=== PATIENT | female | born 1990 | race African-American/Black ===

== ENCOUNTER 2018-01-01 16:21 | Emergency (ER) | payer OTHER ==
[2018-01-01 16:58] LABS: #Eosinphils 0.1 thou/uL (0.0-0.7); #Lymphocytes 1.4 thou/uL (1.20-3.40); #Monocytes 0.5 thou/uL (0.11-0.59); #Neutrophils 6.2 thou/uL (1.40-6.50); %Basophils 0.2 % (0.0-1.0); %Eosinophils 1.1 % (0.0-10.0); %Lymphocytes 17.2 % (21.0-51.0); %Monocytes 6.6 % (0.0-10.0); Mean Corpuscular HGB CONC 34.6 g/dL (32.0-36.0); Mean Corpuscular Hemoglobin 30.1 pg (27.0-31.0); Mean Corpuscular Volume 87.1 fl (81.0-99.0); Mean Platelet Volume 6.7 fL (7.4-10.4); Platelet Count 232 thou/uL (130-400); RBC Distribution Width 12.2 % (11.5-14.5); Red Blood Cell (RBC) Count 4.31 mill/uL (4.20-5.40); White Blood Cell (WBC) Count 8.2 thou/uL (4.8-10.8)
[2018-01-01 17:21] LABS: ALT (SGPT) 15 U/L (8-55); AST (SGOT) 16 U/L (5-34); Albumin 3.6 g/dL (3.5-5.0); Alkaline Phosphatase 92 U/L (40-150); Anion Gap 10 mmol/L (10-20); BUN (Urea Nitrogen) 6 mg/dL (7.0-18.7); Bilirubin, Total 0.5 mg/dL (0.2-1.2); Calc. Creatinine Clearance 0 mL/min (70-130); Calcium 9.3 mg/dL (7.8-10.44); Carbon Dioxide 25 mmol/L (22-29); Chloride 101 mmol/L (98-107); Estimated GFR-MDRD Greater than 90; Globulin 3.5 g/dL (2.4-3.5); Glucose 76 mg/dL (70-105); Potassium 3.3 mmol/L (3.5-5.1); Protein, Total 7.1 g/dL (6.0-8.3); Sodium 133 mmol/L (136-145)
[2018-01-01] MEDS ORDERED: Azithromycin 250 MG TAB ONE (18:20)
[2018-01-01] MEDS ORDERED: Potassium Chloride 20 MEQ TAB ONE (18:20)
[2018-01-01] MEDS ORDERED: Ondansetron HCl/PF 4 MG/2 ML Vial ONE (19:37)
[2018-01-01 19:47] LABS: Bilirubin Negative (Negative); Blood, Urine Negative (Negative); Clarity CLEAR (Clear); Glucose, Urine (Dipstick) Negative (Negative); Leukocyte Small (Negative); Nitrite Negative (Negative); Protein, Urine (Dipstick) Negative (Neg-Trace)
[2018-01-01 19:49] LABS: Bacteria/HPF None Seen HPF (None Seen); Hyaline Casts/LPF 0-3 HYALINE CAST LPF (0-3 Hyaline); Pathc Cast-AUWi Flag 0.14 (0-2.49); RBC/HPF 0-3 HPF (0-3)
[2018-01-01 19:54] LABS: Renal Epithelial None Seen HPF (0-3); Transitional Epithelial NONE SEEN HPF (0-3)
[2018-01-01] MEDS ORDERED: diphenhydrAMINE 50 MG/ML VIAL ONE (20:53)
== END 2018-01-01 22:14 | disposition home or self-care (01) ==
LOC: ERS 16:21
DX: O21.1 Hyperemesis gravidarum with metabolic disturbance (principal); Z3A.13 13 weeks gestation of pregnancy
CPT/HCPCS: 36415; 80053; 81003; 81015; 84702; 85025; 87804; 96361; 96374; 96375; J1200; J2405

== ENCOUNTER 2018-01-27 07:17 | Emergency (ER) | payer OTHER ==
[2018-01-27] MEDS ORDERED: Ondansetron ODT 4 MG TAB ONE (07:53)
[2018-01-27 08:04] LABS: #Eosinphils 0.1 thou/uL (0.0-0.7); #Lymphocytes 0.6 thou/uL (1.20-3.40); #Monocytes 0.7 thou/uL (0.11-0.59); #Neutrophils 12.6 thou/uL (1.40-6.50); %Basophils 0.2 % (0.0-1.0); %Eosinophils 0.4 % (0.0-10.0); %Lymphocytes 4.6 % (21.0-51.0); %Monocytes 4.6 % (0.0-10.0); %Neutrophils 90.2 % (42.0-75.0); Hemoglobin 12.3 g/dL (12.0-16.0); Mean Corpuscular HGB CONC 34.3 g/dL (32.0-36.0); Mean Corpuscular Volume 87.5 fl (81.0-99.0); Mean Platelet Volume 6.9 fL (7.4-10.4); Platelet Count 244 thou/uL (130-400); RBC Distribution Width 12.7 % (11.5-14.5); Red Blood Cell (RBC) Count 4.09 mill/uL (4.20-5.40); White Blood Cell (WBC) Count 13.9 thou/uL (4.8-10.8)
[2018-01-27 08:21] LABS: Bilirubin Small (Negative); Blood, Urine Negative (Negative); Clarity CLOUDY (Clear); Glucose, Urine (Dipstick) Negative (Negative); Leukocyte Large (Negative); Nitrite Negative (Negative); Protein, Urine (Dipstick) 30 mg/dL (Neg-Trace); Specific Gravity, Urine 1.029 (1.002-1.036)
[2018-01-27 08:23] LABS: Bacteria/HPF Rare-Few HPF (None Seen); Pathc Cast-AUWi Flag 1.74 (0-2.49); RBC/HPF 0-3 HPF (0-3)
[2018-01-27 08:27] LABS: ALT (SGPT) 10 U/L (8-55); AST (SGOT) 14 U/L (5-34); Albumin 3.7 g/dL (3.5-5.0); Alkaline Phosphatase 66 U/L (40-150); Anion Gap 9 mmol/L (10-20); BUN (Urea Nitrogen) 6 mg/dL (7.0-18.7); Bilirubin, Total 0.5 mg/dL (0.2-1.2); Calc. Creatinine Clearance 0 mL/min (70-130); Calcium 9.4 mg/dL (7.8-10.44); Carbon Dioxide 24 mmol/L (22-29); Chloride 105 mmol/L (98-107); Estimated GFR-MDRD Greater than 90; Globulin 3.5 g/dL (2.4-3.5); Glucose 115 mg/dL (70-105); Potassium 3.3 mmol/L (3.5-5.1); Protein, Total 7.2 g/dL (6.0-8.3); Sodium 135 mmol/L (136-145)
[2018-01-27 08:34] LABS: Yeast-AUWi Flag 50.1 (0-25.0)
[2018-01-27 08:44] LABS: Trichomonas/HPF Rare HPF (None Seen); Yeast-All Forms None Seen HPF (None Seen)
[2018-01-27 08:46] LABS: Hyaline Casts/LPF NONE SEEN LPF (0-3 Hyaline)
== END 2018-01-27 09:15 | disposition home or self-care (01) ==
LOC: ERS 07:17
DX: O98.312 Other infections with a predominantly sexual mode of transmission complicating pregnancy, second trimester (principal); A59.00 Urogenital trichomoniasis, unspecified; O23.42 Unspecified infection of urinary tract in pregnancy, second trimester; O21.9 Vomiting of pregnancy, unspecified; O99.89 Other specified diseases and conditions complicating pregnancy, childbirth and the puerperium; R19.7 Diarrhea, unspecified; Z3A.17 17 weeks gestation of pregnancy
CPT/HCPCS: 80053; 81003; 81015; 85025; 87086; 96360; Q0162

== ENCOUNTER 2018-04-27 21:28 | Observation (INO) | payer OTHER ==
[2018-04-27] MEDS ORDERED: Acetaminophen 500 MG TAB PO PRN (23:07)
[2018-04-27] MEDS ORDERED: diphenhydrAMINE 25 MG CAP PO PRN (23:11)
--- NOTE | 2018-04-27 23:19 | PDOC.LDHP ---
Labor and Delivery H&P Chief complaint: other (Vaginal pain) HPI: 27yo @27weeks presents for vaginal pain after running from a pit bull. Pt reports sprinting 1-2 blocks from an attacking dog and feeling sharp vaginal pain on ambulation 30 minutes after episode. Pt only feels pain when trying to move legs and reports that it feels like a pulled muscle. She was not bitten and did not fall. Pain is absent when pt is completely still and relaxed but severe enough on ambulation that she has difficulty walking. Reports good movement, no vaginal bleeding or loss of fluid. Reports history of karley hopkins contractions (no increase in frequency). Current gestational age (weeks): 27 Dating criteria: first trimester ultrasound Grav: 4 Para: 3 Current complications: none Current medications: none Previous surgical history: other (CS x3) Allergies/Adverse Reactions: Allergies Allergy/AdvReac Type Severity Reaction Status Date / Time No Known Allergies Allergy Verified 04/27/18 22:09 - Physical Exam Vital signs reviewed and normal: yes General: NAD, resting Heart: RRR Lungs: nonlabored breathing Abdomen: NTTP Extremeties: other (Decreased strength and passive ROM of hip extension/flexion due to pain. Pain also elicited by bilateral hip internal rotation, and on manual compression of the iliac wings.) FHT: category 1 - Vaginal Exam cm dilated: 1 (closed) Effacement: 0% Station: -2 - Assessment Pt not in labor. Pain is likely due to muskuloskeletal causes with possible mild pelvic diastasis. - Plan -: -Tylenol for pain -Benadryl prn for anxiety -CPK -PO rehydration -will discharge pending CPK
[2018-04-28] MEDS ORDERED: Promethazine HCl 25 MG/ML VIAL IM PRN (00:18)
[2018-04-28] MEDS ORDERED: Ondansetron HCl/PF 4 MG/2 ML Vial IVP PRN (00:18)
[2018-04-28] MEDS ORDERED: HYDROcodone/Acetaminophen 5/325 mg Tablet PO PRN ×4 (00:21→02:42)
[2018-04-28] MEDS ORDERED: Lactated Ringer's 1,000 ML IV SCH ×2 (00:30→02:45)
[2018-04-28] MEDS ORDERED: Acetaminophen 325 MG TAB PO PRN (01:00)
[2018-04-28] MEDS ORDERED: Fentanyl 100 MCG/2 ML VIAL SLOW IVP PRN (01:01)
--- NOTE | 2018-04-28 05:53 | PDOC.OBTPN ---
FMR OB Triage PN:Obj - Maternal Vital signs: BP: [] HR: [] RR: [] Tmax: [] Pox: []% on [] Wt: [] FMR OB Triage PN:Exam - Physical Exam General: CTAB, no respiratory distress, good air movement FMR OB Triage PN:Data - Labs Lab results: Laboratory Results - last 24 hr 04/27/18 23:32 Creatine Kinase 33 FMR OB Triage PN:A/P Discussion: Date/Time: 04/28/18 0553 This H&P was discussed with [] and [] who agree with the above documentation and plan.
--- NOTE | 2018-04-28 09:28 | PDOC.FM ---
- Subjective Subjective: Patient complained of pain in her "vaginal area" overnight. More localized to the area over the pubic symphysis. Difficulty with ambulating. - Objective MAR Reviewed: Yes Vital Signs & Weight: Vital Signs (12 hours) Temp Pulse Resp BP BP Pulse Ox 04/28/18 08:14 97.8 F 95 20 109/56 L 04/28/18 02:15 98.0 F 91 16 112/59 L 04/27/18 22:01 98.6 F 104 H 18 127/76 99 Weight Weight 160 g I&O: 04/27/18 04/28/18 04/29/18 06:59 06:59 06:59 Intake Total 400 Balance 400 Radiology Reviewed by me: Yes (pending read) <Kim Vargas - Last Filed: 04/28/18 10:56> - Objective Vital Signs & Weight: Weight Weight 160 g <Uziel Rosado - Last Filed: 04/30/18 09:00> Phys Exam - Physical Examination HEENT: moist MMs Tenderness to palpation at left-lateral to pubic sympysis, pain with ambula tion and internal and external rotation of extremities. Neurological: moves all 4 limbs Psychiatric: A&O x 3 Skin: no rash <Kim Vargas - Last Filed: 04/28/18 10:56> Dx/Plan (1) Pelvic pain Code(s): R10.2 - PELVIC AND PERINEAL PAIN Status: Acute - Plan Plan: 1. Pelvic discomfort due to diastasis of -Pain controlled with Trosper 5, will send for home prescription -Pelvic xray shows widening of pubic symphysis; measurement at 5mm, WNL -Pain most like 2/2 to normal anatomical changes -Consulted case management to aid in providing home walker equipement -Will discharge today; patient has follow up appt with PCP/OB Dr. Rea on 05/04 Obs <[address] Rosado <Kim Vargas - Last Filed: 04/28/18 10:56> Attending Addendum - Attending Addendum Date/Time: 04/30/18 0858 I personally evaluated the patient and discussed the management with Dr. Vargas I agree with the History, Examination, Assessment and Plan documented above with any addition or exceptions noted below. Rx written & sent electronically for small supply of Trosper 5/325 for severe pelvic discomfort. <Uziel Rosado - Last Filed: 04/30/18 09:00>
--- NOTE | 2018-04-28 09:51 | RAD ---
AP PELVIS RADIOGRAPH: Date: 04/28/18 HISTORY: Pelvic diastasis. FINDINGS: There is partial visualization of an intrauterine gestation in cephalic presentation with head overlying the pelvis. Osseous structures appear intact. No fracture is seen. Sacroiliac joints are sy mmetric bilaterally. There does appear to be slight increased widening of the pubic symphysis in rela tion to analog ic design engineer image from CT abdomen/pelvis on 11/04/16. No other findings. IMPRESSION: 1. Intrauterine gestation in cephalic presentation with head overlying the pelvis. 2. Suggestion of slight widening of the pubic symphysis. POS: [facility]
[2018-04-28 11:59] VITALS: BP 127/58; TEMP 98.3
--- NOTE | 2018-04-30 04:38 | DIS-2 ---
DATE OF ADMISSION: 04/28/2018 DATE OF DISCHARGE: 04/28/2018 RESIDENT: Kim Vargas MD ADMITTING ATTENDING: Rashida Ramires M.D. DISCHARGE ATTENDING: Uziel Rosado MD CONSULTATIONS: None. PROCEDURES: None. PRIMARY DIAGNOSIS: Pelvic diastasis. SECONDARY DIAGNOSIS: . DISCHARGE MEDICATIONS: 1. Somerset 1-2 tabs p.o. q.4. p.r.n. for severe pain. 2. vitamins one tab p.o. q.a.m. DISCONTINUED MEDICATIONS: None. HISTORY OF PRESENT ILLNESS AND HOSPITAL COURSE: Ms. Solis is a 27-year-old at 27 weeks who presented for pelvic/vaginal pain after running from a pit bull for 1-2 blocks. She reports presence of pain when trying to move her legs and that it feels like a pulled muscle. She denied getting bitten or trauma. FHT showed category 1 with no signs of active labor. She did have decreased strength and passive range of motion of hip extension, flexion and internal and external rotation due to pain. Pelvic x-ray was ordered in order to assess for pelvic diastasis or possible fracture. Xray was negative for fracture. Of note, there was increased widening of the pubic symphysis measuring at 5mm, the upper limit of normal, in order to quality for pelvic diastasis. It was decided that pelvic pain was secondary to normal anatomical widening of the pelvis due to . Patient was discharged with a walker and medication in order to help manage the pain. Extensive discussion was had that patient would continue to experience pain as baby grew bigger and that her history of prior C-sections and put her at increased risk for her condition. Patient showed understanding of the situation and her condition and agreed to try and use the walker and control her pain with Somerset if it got too severe until she followed up with her PCP, Dr. Rea. DISPOSITION: Stable, pain with ambulating but given walker and pain meds on discharge. DISCHARGE INSTRUCTIONS: 1. Location: Home. 2. Diet: Normal. 3. Activity: As tolerated. 4. Followup: Please follow up with your PCP, Dr. Rea within the next week to discuss if needed to renew Somerset Rx and to assess efficacy of a walker and possible further interventions (i.e. brace, etc) Seen and discussed with Dr. Vargas - agree with above. [facility]
== END 2018-04-28 15:15 | disposition home health service (06) ==
LOC: L&D/OP 21:28 → L&D 04-28 01:28 → 3SW 04-28 02:32
PROVIDERS: ADMIT Student in an Organized Health Care Education/Training Program; ATTEND Student in an Organized Health Care Education/Training Program
DX: O99.89 Other specified diseases and conditions complicating pregnancy, childbirth and the puerperium (principal); M62.059 Separation of muscle (nontraumatic), unspecified thigh; Z3A.27 27 weeks gestation of pregnancy
CPT/HCPCS: 36415; 59025; 72170; 76815; 82550; 96361; 96374; 99285; G0378; J3010

== ENCOUNTER 2018-11-09 13:22 | Emergency (ER) | payer OTHER ==
[2018-11-09] MEDS ORDERED: Ondansetron ODT 4 MG TAB ONE (14:25)
[2018-11-09 14:33] LABS: Bilirubin Negative (Negative); Blood, Urine Moderate (Negative); Clarity CLOUDY (Clear); Glucose, Urine (Dipstick) Negative (Negative); Leukocyte Moderate (Negative); Nitrite Negative (Negative); Protein, Urine (Dipstick) Trace mg/dL (Neg-Trace); Specific Gravity, Urine 1.021 (1.002-1.036); pH, Urine 6.5 (5.0-9.0)
[2018-11-09 14:35] LABS: Bacteria/HPF Rare-Few HPF (None Seen); Hyaline Casts/LPF 0-3 HYALINE CAST LPF (0-3 Hyaline); Pathc Cast-AUWi Flag 0.14 (0-2.49); Squamous Epithelial 0-3 HPF (0-3)
[2018-11-09 14:42] LABS: Pregnancy Test - Urine (BHCG) Negative (Negative)
[2018-11-09 14:43] LABS: Pregu Control Background? CLEAR/WHITE (CLR/WHITE); Pregu Control Bar Appear? YES (CONTROL BAR); Specific Gravity 1.024 (1.002-1.036)
== END 2018-11-09 15:08 | disposition home or self-care (01) ==
LOC: ERS 13:22
DX: N39.0 Urinary tract infection, site not specified (principal); J06.9 Acute upper respiratory infection, unspecified
CPT/HCPCS: 81003; 81015; 81025; 87086; 87804; 99284; Q0162

== ENCOUNTER 2018-11-27 09:14 | Emergency (ER) | payer OTHER | END 2018-11-27 09:57 | disposition home or self-care (01) | LOC: ERS 09:14 | DX: H10.9 Unspecified conjunctivitis (principal) | CPT/HCPCS: 99282 ==

== ENCOUNTER 2019-08-12 13:30 | Emergency (ER) | payer OTHER ==
[2019-08-12] MEDS ORDERED: Ondansetron ODT 4 MG TAB ONE (14:44)
== END 2019-08-12 16:03 | disposition home or self-care (01) ==
LOC: ERS 13:30
DX: R11.2 Nausea with vomiting, unspecified (principal)
CPT/HCPCS: 99283; Q0162

== ENCOUNTER 2019-11-12 17:20 | Emergency (ER) | payer OTHER ==
[2019-11-12] MEDS ORDERED: Ibuprofen 200 MG TAB ONE (18:48)
--- NOTE | 2019-11-12 18:52 | RAD ---
XR Foot Lt 3 View STANDARD HISTORY: Injury, left foot pain FINDINGS: No dislocation is identified. There is a questionable nondisplaced fracture involving the middle phalanx of the second toe. Clinica l correlation is recommended.
== END 2019-11-12 19:03 | disposition home or self-care (01) ==
LOC: ERS 17:20
DX: S90.122A Contusion of left lesser toe(s) without damage to nail, initial encounter (principal); W20.8XXA Other cause of strike by thrown, projected or falling object, initial encounter

== ENCOUNTER 2020-07-29 16:16 | Emergency (ER) | payer OTHER ==
[2020-07-29 16:52] LABS: #Basophils 0.1 thou/uL (0.0-0.2); #Eosinphils 0.1 thou/uL (0.0-0.7); #Lymphocytes 3.1 thou/uL (1.20-3.40); #Monocytes 0.8 thou/uL (0.11-0.59); #Neutrophils 4.7 thou/uL (1.40-6.50); %Basophils 0.9 % (0.0-1.0); %Eosinophils 1.7 % (0.0-10.0); %Lymphocytes 35.3 % (21.0-51.0); %Monocytes 9.1 % (0.0-10.0); Hemoglobin 13.1 g/dL (12.0-16.0); Mean Corpuscular HGB CONC 33.4 g/dL (32.0-36.0); Mean Corpuscular Hemoglobin 28.9 pg (27.0-31.0); Mean Corpuscular Volume 86.5 fL (78.0-98.0); Mean Platelet Volume 7.6 fL (7.4-10.4); Platelet Count 305 thou/uL (130-400); RBC Distribution Width 12.7 % (11.5-14.5); Red Blood Cell (RBC) Count 4.52 mill/uL (4.20-5.40); White Blood Cell (WBC) Count 8.8 thou/uL (4.8-10.8)
[2020-07-29 17:24] LABS: Bilirubin Negative (Negative); Blood, Urine Negative (Negative); Clarity Clear (Clear); Glucose, Urine (Dipstick) Normal (Negative); Ketone, Urine Negative (Negative); Leukocyte Negative Leu/uL (Negative); Nitrite Negative (Negative); Protein, Urine (Dipstick) Negative (Neg-Trace); Specific Gravity, Urine 1.011 (1.002-1.036); Urobilinogen Normal mg/dL (Less than 2); pH, Urine 6.5 (5.0-9.0)
[2020-07-29 17:26] LABS: Pregnancy Test - Urine (BHCG) POSITIVE (Negative); Pregu Control Background? CLEAR/WHITE (CLR/WHITE); Pregu Control Bar Appear? YES (CONTROL BAR); Specific Gravity 1.011 (1.002-1.036)
--- NOTE | 2020-07-29 18:05 | ULT ---
PELVIC ULTRASOUND: 07/29/20 HISTORY: Spontaneous two months ago. Positive home test last week. No bleeding per patient. Pelvic pain. COMPARISON: An 05/27/20 exam. Real time imaging of the pelvis was obtained both transabdominally as well as with an endovaginal pro be. This shows an intrauterine gestational sac. Sac measurements are approximately 1 cm corresponding to 5 weeks, 5 days. No pole or yolk sac is seen. Adjacent to this structure is a second fluid density structure probably subchorionic bleed and less likely at second involuting sac. Right and left adnexa appear within normal limits. DOPPLER EVALUATION WITH SPECTRAL ANALYSIS: Normal flow is shown to the adnexa. IMPRESSION: Low lying intrauterine gestational sac with subchorionic bleed. No pole or yolk sac is identifi ed. POS: OFF
== END 2020-07-29 18:22 | disposition home or self-care (01) ==
LOC: ERS 16:16
DX: O20.0 Threatened abortion (principal); Z3A.01 Less than 8 weeks gestation of pregnancy
CPT/HCPCS: 36415; 76856; 81003; 81025; 84702; 85025; 86900; 86901

== ENCOUNTER 2020-08-01 01:01 | Emergency (ER) | payer OTHER ==
[2020-08-01] MEDS ORDERED: Acetaminophen 500 MG TAB ONE (01:26)
[2020-08-01 01:43] LABS: #Basophils 0.1 thou/uL (0.0-0.2); #Eosinphils 0.1 thou/uL (0.0-0.7); #Lymphocytes 3.3 thou/uL (1.20-3.40); #Monocytes 0.8 thou/uL (0.11-0.59); #Neutrophils 5.1 thou/uL (1.40-6.50); %Basophils 0.7 % (0.0-1.0); %Eosinophils 1.5 % (0.0-10.0); %Monocytes 8.3 % (0.0-10.0); %Neutrophils 54.6 % (42.0-75.0); Hemoglobin 12.8 g/dL (12.0-16.0); Mean Corpuscular HGB CONC 33.9 g/dL (32.0-36.0); Mean Corpuscular Hemoglobin 29.1 pg (27.0-31.0); Mean Corpuscular Volume 85.9 fL (78.0-98.0); Mean Platelet Volume 7.2 fL (7.4-10.4); Platelet Count 297 thou/uL (130-400); RBC Distribution Width 12.7 % (11.5-14.5); Red Blood Cell (RBC) Count 4.39 mill/uL (4.20-5.40); White Blood Cell (WBC) Count 9.3 thou/uL (4.8-10.8)
[2020-08-01 02:04] LABS: Bilirubin Negative (Negative); Blood, Urine Negative (Negative); Clarity Clear (Clear); Glucose, Urine (Dipstick) Normal (Negative); Ketone, Urine Negative (Negative); Leukocyte Negative Leu/uL (Negative); Nitrite Negative (Negative); Protein, Urine (Dipstick) Negative (Neg-Trace); Specific Gravity, Urine 1.021 (1.002-1.036); Urobilinogen Normal mg/dL (Less than 2)
--- NOTE | 2020-08-01 07:45 | ULT ---
PRELIMINARY REPORT/[facility]/EMERGENCY AFTER HOURS PROCEDURE EXAM: US Obstetrical, Complete <14 weeks CLINICAL HISTORY: Pelvic pain, no vaginal bleeding, HCG, Total Quant 31689.92 TECHNIQUE: Transvaginal and transabdominal imaging of the maternal pelvis and a <14 week gestation with image do cumentation. COMPARISON: None provided. FINDINGS: GESTATION: An 8.1 mm intrauterine gestational sac is noted, corresponding to 5 weeks 4 days, with no evidence fo r pole or yolk sac and a small quantity of endometrial fluid is noted in the fundal region UTERUS: Unremarkable. No myometrial mass. Measures 11.4 x 4.0 x 5.8 cm CERVIX: Closed. Unremarkable. OVARIES: Unremarkable. No mass. The RIGHT side measures 4.1 x 3.2 x 2.9 cm and the LEFT side measures 3.5 x 1 .4 x 2.3 cm FREE FLUID: No free fluid. IMPRESSION: Early empty intrauterine gestational sac ELECTRONICALLY SIGNED BY: Luke Turner MD Aug 01, 2020 2:24:31 AM CDT This report is intended for review by the ordering physician only, in accordance of law. If you recei ve this report in error, please call [facility] at [phone]. FINAL REPORT Exam: Transabdominal and endovaginal pelvic ultrasound HISTORY:Pelvic pain. No vaginal bleeding. COMPARISON: None TECHNIQUE: Transabdominal and endovaginal imaging of the pelvis is performed. Ovaries are interrogate d with grayscale, color flow, Doppler imaging and spectral wave form analysis FINDINGS: Uterus: No myometrial masses. Uterus measurin.5 x 4.1 x 5.8 cm. Endometrium: Within the endometrium, there is an anechoic focus which may represent a gestational sac . No evidence of yolk sac or pole. Free fluid: None Right ovary: Normal echotexture Right ovary measurement: 4.1 x 3.3 x 2.9 cm Left ovary: Normal echotexture. Left ovary measurements: 3.5 x 1.4 x 2.3 cm Ovarian Doppler: There is vascular flow to the left and right ovary. IMPRESSION: 1. This report is in agreement with initial report by [facility]. 2. Anechoic focus in the endometrium which may represent a gestational sac versus a pseudogestational sac. Differential considerations include early intrauterine versus a sonographically occult ectopic versus a nonviable . Follow-up ultrasound and serial beta-hCGs are recommended. Transcribed Date/Time: 08/01/2020 7:49 AM
== END 2020-08-01 03:14 | disposition home or self-care (01) ==
LOC: ERS 01:01
DX: O99.891 Other specified diseases and conditions complicating pregnancy (principal); M54.5 Low back pain
CPT/HCPCS: 36415; 76856; 81003; 84702; 85025

== ENCOUNTER 2020-08-05 22:56 | Emergency (ER) | payer OTHER ==
[2020-08-05] MEDS ORDERED: Ondansetron ODT 8 MG TAB ONE (23:33)
[2020-08-05 23:44] LABS: Bilirubin Negative (Negative); Blood, Urine Negative (Negative); Clarity Clear (Clear); Glucose, Urine (Dipstick) Normal (Negative); Ketone, Urine 10 mg/dL (Negative); Leukocyte Negative Leu/uL (Negative); Nitrite Negative (Negative); Protein, Urine (Dipstick) 10 mg/dL (Neg-Trace); Specific Gravity, Urine 1.023 (1.002-1.036); pH, Urine 6.5 (5.0-9.0)
== END 2020-08-06 00:05 | disposition home or self-care (01) ==
LOC: ERS 22:56
DX: O21.9 Vomiting of pregnancy, unspecified (principal); O99.891 Other specified diseases and conditions complicating pregnancy; R10.13 Epigastric pain
CPT/HCPCS: 81003; 99284; Q0162

== ENCOUNTER 2020-09-30 21:46 | Observation (INO) | payer OTHER ==
[2020-09-30 22:52] LABS: Bacteria/HPF 2+ HPF (None Seen); Bilirubin Negative (Negative); Blood, Urine Negative (Negative); Clarity Clear (Clear); Glucose, Urine (Dipstick) Normal (Negative); Ketone, Urine Negative (Negative); Leukocyte 250 Leu/uL (Negative); Mucous/LPF 1+ LPF (<2+); Nitrite Negative (Negative); Protein, Urine (Dipstick) 30 mg/dL (Neg-Trace); RBC/HPF 0-3 HPF (0-3); Specific Gravity, Urine 1.035 (1.002-1.036); WBC/HPF 0-3 HPF (0-3); pH, Urine 6.5 (5.0-9.0)
[2020-09-30 23:16] LABS: #Lymphocytes 0.8 thou/uL (1.20-3.40); #Monocytes 0.8 thou/uL (0.11-0.59); #Neutrophils 7.4 thou/uL (1.40-6.50); %Basophils 0.1 % (0.0-1.0); %Eosinophils 0.5 % (0.0-10.0); %Lymphocytes 8.8 % (21.0-51.0); %Monocytes 8.5 % (0.0-10.0); %Neutrophils 82.1 % (42.0-75.0); Hemoglobin 11.3 g/dL (12.0-16.0); Mean Corpuscular HGB CONC 33.2 g/dL (32.0-36.0); Mean Corpuscular Volume 87.5 fL (78.0-98.0); Mean Platelet Volume 7.5 fL (7.4-10.4); Platelet Count 232 thou/uL (130-400); RBC Distribution Width 13.7 % (11.5-14.5); Red Blood Cell (RBC) Count 3.89 mill/uL (4.20-5.40)
[2020-10-01] MEDS ORDERED: Lidocaine Viscous Sol 2% 15 ml UD Cup ONE (00:04)
[2020-10-01] MEDS ORDERED: Mag-Al 1200 mg/1200 mg/30 ML UDCUP ONE (00:04)
--- NOTE | 2020-10-01 06:02 | PDOC.FPRHP ---
- History of Present Illness Chief Complaint: SOB History of Present Illness: Patient is a 29 year old at 14.0wk by LMP/9.2wk US who presented to ED with complains of chest pain and SOB since this am. Patient describes pain as sternal, rated 3/10, nonradiating, worsened with inspiration. Reports SOB at rest that worsened with activity and speaking. Notes tachycardia but denies headache, vision changes, wheezing, and nausea. Initially experienced suprapubic abdominal pain but now resolved. Notes chest pain and abdominal pain improved after GI cocktail. Has experienced GERD symptoms throughout consisting as bad aftertaste, increased reflux at night and reflux after large meals. Denies similar symptoms in the past. Notes BP has been elevated in clinic and she is currently being evaluated for chronic HTN. Denies hx of tachycardia. ED Course: In the ED, HR ranged 120s-130s. Given 2L NS with improvement to 110s. However, HR would increase to 140s with ambulation. BP initially elevated at 140s/70s but improved to 100s/60s after fluids. EKG completed and showed tachycardia. CT Angio Chest completed - per ED report, no obvious PE present however scan was poor quality. Also given GI cocktail with improvement of chest pain and resolution of abdominal pain. - Allergies/Adverse Reactions Allergies Allergy/AdvReac Type Severity Reaction Status Date / Time No Known Allergies Allergy Verified 12/27/19 01:59 - Home Medications Medication Instructions Recorded Confirmed Type Vit 93/Iron Fum/Folic 1 tablet PO DAILY 06/12/18 10/01/20 History [ Formula Tablet] Acetaminophen [Tylenol] 650 mg PO Q6HR PRN 10/01/20 10/01/20 History Doxylamine Succinate/Vit B6 1 tab PO HS 10/01/20 10/01/20 History [Doxylamine-Pyridoxine 10-10 mg] Promethazine HCl 12.5 mg PO Q4H PRN 10/01/20 10/01/20 History - History PMHx: Hx GBS bacteruria, hx adhesions, hx BV with adequate treatment PSHx: x 4 FHx: No family hx of blood clots. Social: Denies tobacco use, ETOH use and drug use - Review of Systems General: denies: fever/chills, fatigue Eyes: denies: eye pain, vision changes ENT: denies: nasal congestion, rhinorrhea Respiratory: reports: shortness of breath, exercise intolerance. denies: cough Cardiovascular: reports: chest pain, palpitation, orthopnea. denies: edema, paroxysmal nocturnal dyspnea Gastrointestinal: denies: nausea, diarrhea, constipation, abdominal pain Genitourinary: denies: dysuria, polyuria Skin: denies: rashes, jaundice Musculoskeletal: denies: pain, tenderness Neurological: denies: seizure, weakness Psychological: denies: anxiety, depression - Vital signs BP 130/67, HR 135, RR 18, Pulse ox 99% on RA, temp 99.9F - Physical Exam Constitutional: NAD, awake, alert and oriented HEENT: normocephalic and atraumatic, PERRLA, no scleral icterus, MMM Neck: supple, FROM Heart: normal S1/S2, no murmurs/rubs/gallops, pulses present, no edema -Heart: Tachycardic Lungs: CTAB, no respiratory distress, good air movement, no rales/rhonchi, no wheezing -Lungs: Able to speak in complete sentences without effort Abdomen: soft, non-tender, bowel sounds present -Abdomen: Gravid Musculoskeletal: ROM grossly normal Neurological: no focal deficit Skin: no jaundice Heme/Lymphatic: no purpura, no petechia Psychiatric: normal mood and affect FMR H&P: Results - Labs Result Diagrams: 09/30/20 22:48 10/01/20 06:31 Lab results: WBC 9.0 thou/uL (4.8-10.8) 09/30/20 22:48 Hgb 11.3 g/dL (12.0-16.0) L 09/30/20 22:48 Hct 34.1 % (36.0-47.0) L 09/30/20 22:48 MCV 87.5 fL (78.0-98.0) 09/30/20 22:48 Plt Count 232 thou/uL (130-400) 09/30/20 22:48 Neutrophils % 82.1 % (42.0-75.0) H 09/30/20 22:48 B-Natriuretic Peptide Less than 10.0 pg/mL (0-100) 10/01/20 01:05 Lipase 13 U/L (8-78) 09/30/20 22:48 Urine Ketones Negative mg/dL (Negative) 09/30/20 22:29 Urine Blood Negative (Negative) 09/30/20 22:29 Urine Nitrite Negative (Negative) 09/30/20 22:29 Ur Leukocyte Esterase 250 Maday/uL (Negative) A 09/30/20 22:29 Urine RBC 0-3 HPF (0-3) 09/30/20 22:29 Urine WBC 0-3 HPF (0-3) 09/30/20 22:29 Ur Squamous Epith Cells 7-10 HPF (0-3) A 09/30/20 22:29 Urine Bacteria 2+ HPF (None Seen) A 09/30/20 22:29 - EKG Interpretation EKG: Sinus tachycardia, no ST segment changes FMR H&P: A/P - Plan 29 year old at 14.0wk who presented with SOB and sternal chest pain Sinus tachycardia HR 120s-130s in ED, improved to 110s s/p 2 L NS. Increases to 140s with activity. EKG showed sinus tach. Trop negative x 3. CT Angio Chest negative for obvious PE but inadequate scan. Likely worsened due to poor PO intake 2/2 chronic nausea. -Admit to tele obs -Continuous cardiac monitoring -Vitals Q4H -s/p 2 L NS in ED. Encourage PO intake -COVID test to r/o infectious cause GBS bacteruria In clinic on 09/29, urine culture + GBS 10-50,000 cfu. UA + leuk est, bacteria, squams, protein. -Start amoxil 875mg BID -F/u urine culture Parra IUP -14.0wk by LMP/9.2wk US. Hx adhesions S/p x 4 Hx BV with adequate treatment -Aware PCP: [facility] Code: FULL DVT ppx: SCDs Dispo: Admit to tele obs, expected LOS < 48 hours FMR H&P: Upper Level - Plan Date/Time: 10/01/[address] Sarah Cárdenas and Dr. Chyna Coughlin Addendum - Attending - Attending Attestation Date/Time: 10/01/20 1047 I personally evaluated the patient and discussed the management with Dr. Louis I agree with the History, Examination, Assessment and Plan documented above with any addition or exceptions noted below - 29 yo @ 14.0 weeks presented c/o substernal chest pain worse with deep inspiration, and SOB. Denies any recent travel or ill contacts. Initially denied any cough, nasal congestion or MORTON but now endorses these symptoms. Tm100 P125 BP 142/75 RR18 96% Exam repeated by me and agree with resident's findings. Labs: H/H=11.3/34.1, Pmd=935, Diff= 82N/9L, trop<0.010, Ud=448, K=3.5, Ks=790, CO2=23, BUN/Cr=15/0.69. CT angio chest- poor contrast bolus, limited study; no large PE. A/P: Chest pain and SOB - CT chest limited study; discussed with radiology and suggested b/l lower ext doppler to evaluate for possible DVT. Will start on therapeutic lovenox pending studies and consider repeat CT chest if symptoms continue and no other etiology found. COVID test pending. Continue to monitor closely. 2) GBS bacteruria- culture positive from office. Will start on amoxicillin.
[2020-10-01] MEDS ORDERED: Acetaminophen 325 MG TAB PO PRN (06:15)
[2020-10-01 07:05] LABS: ALT (SGPT) 24 U/L (8-55); AST (SGOT) 28 U/L (5-34); Albumin 3.2 g/dL (3.5-5.0); Alkaline Phosphatase 78 U/L (40-110); Anion Gap 14 mmol/L (10-20); BUN (Urea Nitrogen) 5 mg/dL (7.0-18.7); Bilirubin, Total 0.2 mg/dL (0.2-1.2); Calc. Creatinine Clearance 0 mL/min (70-130); Calcium 8.2 mg/dL (7.8-10.44); Carbon Dioxide 23 mmol/L (22-29); Chloride 106 mmol/L (98-107); Globulin 2.9 g/dL (2.4-3.5); Glucose 95 mg/dL (70-105); Potassium 3.5 mmol/L (3.5-5.1); Protein, Total 6.1 g/dL (6.0-8.3); Sodium 139 mmol/L (136-145)
[2020-10-01 07:09] LABS: Troponin I Less than 0.010 ng/mL (< 0.028)
[2020-10-01 07:38] VITALS: BMI 36.0
[2020-10-01] MEDS: Dextrose 5 % And 0.9 % NaCl 1,000 ML IV SCH ×2 (08:37→18:17)
[2020-10-01] MEDS: Prenatal Vitamin 1 TAB PO SCH (08:37)
[2020-10-01] MEDS ORDERED: PRENATAL VIT PO SCH (09:00)
[2020-10-01] MEDS ORDERED: FOLIC PO SCH (09:00)
[2020-10-01] MEDS ORDERED: IRON FUM PO SCH (09:00)
[2020-10-01] MEDS ORDERED: [UNRECOGNIZED DRUG - OTHER] PO SCH (09:00)
[2020-10-01] MEDS ORDERED: AMOXicillin 250 MG CAP PO SCH (09:00)
--- NOTE | 2020-10-01 09:29 | CT ---
PRELIMINARY REPORT/[facility]/EMERGENCY AFTER HOURS PROCEDURE EXAM: CTA Chest with Intravenous Contrast CLINICAL HISTORY: PT IS 13 WEEKS AND STARTED HAVING CP THIS MORNING. TOOK TYLENOL AROUND 1700 WITH NO RELIEF. SOME ABD PAIN WITH NAUSEA. TECHNIQUE: Axial CTA images of the chest with intravenous contrast. Three-dimensional MIP/volume rendered reform ations were performed. CONTRAST: With; ISOVUE 370; 62mL COMPARISON: None provided. FINDINGS: PULMONARY ARTERIES This examination is very limited for evaluation of PE due to the poor contrast enhancement. AORTA No thoracic aortic aneurysm or dissection. LUNGS The lungs are clear. No pulmonary mass. No focal airspace consolidation. PLEURAL SPACES No pleural effusion. No pneumothorax. HEART AND MEDIASTINUM No cardiomegaly. No significant pericardial effusion. LYMPH NODES No lymphadenopathy. BONES No focal osseous abnormality or acute fracture. CHEST WALL AND UPPER ABDOMEN Images through the upper abdomen are unremarkable. The chest wall is unremarkable. IMPRESSION: This examination is very limited for evaluation of PE due to the poor contrast enhancement. There is no large PE seen. ELECTRONICALLY SIGNED BY: José Miguel Hernandez MD Oct 01, 2020 1:56:48 AM SECURITY SYSTEMS ENGINEER This report is intended for review by the ordering physician only, in accordance of law. If you recei ve this report in error, please call [facility] at [phone]. FINAL REPORT EMERGENCY AFTER HOURS CTA CHEST: I agree with the preliminary report provided by [facility]. The exam is technically limited in evaluation for PE due to poor opacification of the pulmonary arterial tree. There are no secondary signs to suggest the presence of pulmonary embolus. There is no evidence of infiltrative disease with in the lungs to suggest pneumonia. Transcribed Date/Time: 10/01/2020 9:37 AM
[2020-10-01] MEDS ORDERED: Iopamidol 370 76% 100 ML VIAL ONE (09:30)
[2020-10-01] MEDS ORDERED: Enoxaparin Sodium 80 MG/0.8 ML SYRINGE SC SCH ×2 (09:45→10:00)
[2020-10-01 10:08] LABS: Troponin I Less than 0.010 ng/mL (< 0.028)
--- NOTE | 2020-10-01 10:44 | ULT ---
EXAM: Bilateral lower extremity venous ultrasound HISTORY: patient. Chest pain. COMPARISON: None TECHNIQUE: Multiplanar grayscale and color Doppler images were obtained in a bilateral lower extremit y venous ultrasound. Spectral analysis of the Doppler waveforms were performed. FINDINGS: The bilateral common femoral vein, profunda femoral veins, superficial femoral veins, and p opliteal veins are normal in appearance without visible thrombus. These vessels demonstrate normal compression, flow, and augmentation. The bilateral posterior tibial veins, profunda femoral veins and greater saphenous veins are patent w ithout evidence of DVT. IMPRESSION: No evidence of DVT in the left or right lower extremity.
[2020-10-01 11:25] LABS: SARS-CoV-2 NAA Rapid Test DETECTED (NotDetected)
[2020-10-01] MEDS: Acetaminophen 325 MG TAB PO SCH ×3 (15:31→20:50)
[2020-10-01] MEDS: Enoxaparin Sodium 80 MG/0.8 ML SYRINGE SC SCH (20:50)
[2020-10-01] MEDS ORDERED: Ondansetron PF 4 MG/2 ML Vial IVP PRN (21:41)
[2020-10-01] MEDS ORDERED: guaiFENesin ER 600 MG TAB PO SCH (22:15)
[2020-10-02] MEDS: Acetaminophen 325 MG TAB PO SCH ×6 (00:46→21:01)
--- NOTE | 2020-10-02 06:01 | PDOC.FM ---
- Subjective Subjective: Patient overall feeling fatigued, denies chest pain. Reports cramping abdominal pain when using the restroom, lightheadedness, fatigue, and dyspnea with exertion. Comfortable when lying down. - Objective MAR Reviewed: Yes Vital Signs & Weight: Vital Signs (12 hours) Temp Pulse Resp BP Pulse Ox 10/02/20 03:05 98.8 F 95 17 98 10/01/20 23:45 99.8 F H 107 H 26 H 118/55 L 95 10/01/20 19:59 99.1 F 109 H 24 H 117/56 L 97 Weight Weight 83.688 kg I&O: 09/30/20 10/01/20 10/02/20 06:59 06:59 06:59 Intake Total 1668 Balance 1668 Result Diagrams: 09/30/20 22:48 10/01/20 06:31 Phys Exam - Physical Examination Constitutional: NAD Respiratory: no wheezing, no rales, no rhonchi, clear to auscultation bilateral Mildly tachycardia, regular rhythm Gastrointestinal: soft, non-tender, no distention Musculoskeletal: no edema, pulses present Dx/Plan - Plan Plan: 29 year old at 14.1wk who presented with SOB and sternal chest pain Sinus tachycardia HR 100s-120s overnight, Trop negative x 3. CT Angio Chest negative for obvious PE but inadequate scan - Continuous cardiac monitoring - Vitals Q4H - Will give 1L bolus COVID + - Likely the cause of sx - Consider course of prednisone outpatient - CTA, Venous duplex negative, Wells score 0-1.5 depending on tachycardia - Likely stop thx lovenox today GBS bacteruria In clinic on 09/29, urine culture + GBS 10-50,000 cfu. UA + leuk est, bacteria, squams, protein. - amoxil 875mg BID - F/u urine culture Parra IUP - 14.1wk by LMP/9.2wk US Hx adhesions S/p x 4 Hx BV with adequate treatment - Aware PCP: [facility] Code: FULL DVT ppx: Thx lovenox Dispo: Admit to tele obs, expected LOS < 48 hours, plan for dc today Addendum - Attending - Attending Attestation Date/Time: 10/02/20 1057 I personally evaluated the patient and discussed the management with Dr. Hyatt. I agree with the History, Examination, Assessment and Plan documented above with any addition or exceptions noted below. She remains intermittently tachycardic but has responded to fluids. She states chest pain is reproducable with deep inspiration and movement but not palpitation. localizes to the sternum. I suspect costrochondritis vs pleuritic pain but would like to get an echo in the context of , recurrent sinus tachycardia, and possible chronic hypertension to rule out peripartum cardiomyopathy. Once echo is obtained she can be discharged. will start short course of steroids for pleuritic pain since NSAIDs cannot be used in . Discussed home quarantine for 14 total days due to COVID positive status and RTC precautions if she has worsening sx.
[2020-10-02] MEDS ORDERED: Lactated Ringer's 1,000 ML IV SCH (08:00)
[2020-10-02] MEDS: guaiFENesin ER 600 MG TAB PO SCH ×2 (08:35→19:48)
[2020-10-02] MEDS: Enoxaparin Sodium 80 MG/0.8 ML SYRINGE SC SCH (08:35)
[2020-10-02] MEDS: Prenatal Vitamin 1 TAB PO SCH (09:28)
[2020-10-02 16:24] LABS: Free T4 (Free Thyroxine) 0.63 ng/dL (0.70-1.48)
--- NOTE | 2020-10-02 17:22 | PDOC.BPN ---
- Brief Progress Note Encounter Date: 10/02/20 Encounter Time: 16:45 Patient feeling better this afternoon. Heart rate in low 90s this afternoon. Unable to perform ECHO at this time due to COVID positive status. Advised patient she will need follow up at [facility] in 2 weeks. Chest pain suspected to have component of costochondritis. Will send course of Prednisone 20 mg x 5 days. Also will send additional Amoxicillin for 6 days to complete course.
[2020-10-02] MEDS ORDERED: hydrOXYzine 25 MG TAB PO SCH (20:15)
[2020-10-02 20:59] LABS: Troponin I Less than 0.010 ng/mL (< 0.028)
[2020-10-03] MEDS: Acetaminophen 325 MG TAB PO SCH ×3 (01:04→08:07)
--- NOTE | 2020-10-03 05:38 | PDOC.FM ---
- Subjective Subjective: Patient was sleeping at the time of evaluation but was easily arousable and pleasant. Patient endorsed 1 episode of mild nausea and lightheadedness while ambulating to the bathroom the day prior, but denied any acute overnight events, specifically with regard to repeat chest pain, difficulty breathing, nausea, vomiting, loss of movement, vaginal bleeding or vaginal discharge, although she did endorse mild dysuria at the end of urination. - Objective Vital Signs & Weight: Vital Signs (12 hours) Temp Pulse Resp BP Pulse Ox 10/03/20 03:20 98.6 F 99 16 107/55 L 97 10/02/20 23:01 98.7 F 103 H 20 121/67 99 10/02/20 19:30 98.7 F 110 H 22 H 133/80 98 10/02/20 18:20 107 H 22 H 128/68 98 Weight Weight 83.688 kg I&O: 10/01/20 10/02/20 10/03/20 06:59 06:59 06:59 Intake Total 1668 1600 Balance 1668 1600 Result Diagrams: 09/30/20 22:48 10/01/20 06:31 Phys Exam - Physical Examination Constitutional: NAD HEENT: moist MMs Neck: no nodes, supple, full ROM Respiratory: no wheezing, no rales, no rhonchi, clear to auscultation bilateral Cardiovascular: RRR, no significant murmur, no rub Gastrointestinal: soft, non-tender, no distention Musculoskeletal: no edema, pulses present Neurological: non-focal, moves all 4 limbs Lymphatic: no nodes Psychiatric: normal affect Dx/Plan (1) COVID-19 Code(s): U07.1 - COVID-19 Status: Acute (2) Intrauterine Code(s): Z34.90 - ENCNTR FOR SUPRVSN OF NORMAL , UNSP, UNSP TRIMESTER Status: Acute (3) Sinus tachycardia Code(s): R00.0 - TACHYCARDIA, UNSPECIFIED Status: Acute (4) GBS bacteriuria Code(s): R82.71 - BACTERIURIA Status: Acute (5) Obesity Code(s): E66.9 - OBESITY, UNSPECIFIED Status: Chronic - Plan Plan: Patient is a 29 y/o female at 14.2W EGA by LMP who presented to the ED for evaluation of SOB and chest pain. #COVID(+) - Likely the cause of patient's symptoms, with strong suspicion for cost ochondritis - No evidence of pending respiratory compromise - CTA Chest/Thorax: Negative - Venous Doppler US: Negative - Tylenol, Guaifenesin PRN - Will likely DC with PO Prednisone for 5 days - Patient was educated on the importance of social distancing and COVID-19 precautions following discharge #Sinus Tachycardia - HR was recorded in the high 90s and low 100s overnight - no evidence of ST- segment changes - All imaging negative, as per above - Trops: Negative x3 - Will continue Cardiac Monitoring throughout hospitalization. - Vitals Q4H - Has responded well to fluids throughout hospitalization - will consider additional 1L bolus if indicated #GBS bacteruria - UCx (09/29 - Clinic): GBS+, 10-50,000 CFU - UA: Leuk. Est., Bacteria, Squams, Protein - Amoxicillin 875mg BID - Repeat UCx: 25-50,000 CFU Mixed Ros #Parra IUP - 14.2W by LMP, c/w 9.2wk US - FHTs reportedly in the 140s on admission - Patient continues to endorse good movement #Hx Adhesions - Aware #Hx of CSx x4 - Aware #Hx of BV, s/p Treatment - Aware PCP: Casey/Bolivar ([facility]) Code: FULL Diet: Regular Activity: Ad wilver VTE PPx: None IVF: None Dispo: Patient appears well at this time but is still admittedly nervous following several episodes of chest pain in the setting of COVID-19 infection. Patient was counseled on the relatively benign course of costochondritis and standard course of viral infections. Will continue PRN Tylenol and Guaifenesin as per above and will likely initiate course of steroids following DC later this AM, with planned follow-up at [facility] in 2W. Expected LOS < 12H. Addendum - Attending - Attending Attestation Date/Time: 10/03/20 1022 I personally evaluated the patient and discussed the management with Dr. Walker. I agree with the History, Examination, Assessment and Plan documented above with any addition or exceptions noted below. Pulse stabilized overnight. CP intermittent and c/w pleurisy vs costrochondritis. discussed disease course with patient. consider outpatient echo if pulse remains elevated but not needed at this time. Given COVID RTC precautions. d/c home today.
[2020-10-03] MEDS: Prenatal Vitamin 1 TAB PO SCH (08:07)
[2020-10-03] MEDS: guaiFENesin ER 600 MG TAB PO SCH (08:08)
--- NOTE | 2020-10-03 08:58 | PDOC.BPN ---
- Brief Progress Note Encounter Date: 10/02/20 Encounter Time: 20:00 Called by nurse noting that patient is having chest pain, described as pressure in the center of her chest, x 20 minutes, with intermittent 8/10 stringing. Patient very anxious at bedside. Tachycardia noted in 120s. All other VSS. Pt does have shortness of breath. No relief with tylenol. EKG showed Sinus tachycardia, Troponin negative. She states that the stinging pain is new and she does not feel comfortable going home, even after discussing likely 2/2 costochondritis and covid. Will continue to monitor overnight and likely discharge in the am.
[2020-10-03 11:56] VITALS: BP 118/64; TEMP 99
--- NOTE | 2020-10-03 17:35 | EKG ---
Test Reason : CP Blood Pressure : / mmHG Vent. Rate : 114 BPM Atrial Rate : 114 BPM P-R Int : 114 ms QRS Dur : 070 ms QT Int : 332 ms P-R-T Axes : 036 043 034 degrees QTc Int : 457 ms Sinus tachycardia Otherwise normal ECG Confirmed by Gauri PEÑA ([id number]) on 10/03/2020 5:34:59 PM Referred By: SCOTT Confirmed By:Gauri PEÑA
--- NOTE | 2020-10-04 06:47 | DIS ---
DATE OF ADMISSION: 10/01/2020 DATE OF DISCHARGE: 10/03/2020 RESIDENT: Dr. Jaspreet Walker. ADMITTING ATTENDING: Dr. Chyna Coughlin. DISCHARGE ATTENDING: Dr. Morales Menendez. CONSULTS: None. PROCEDURES: CTA of chest and thorax performed on 10/01/2020, which revealed a technically difficult exam. However, there are no secondary signs that suggest the presence of a pulmonary embolus and there is no evidence of infiltrative disease within the lung to suggest pneumonia. Venogram performed on 10/01/2020, which revealed no evidence of a DVT in the left or right lower extremity. PRIMARY DIAGNOSIS: Costochondritis, likely secondary to COVID-19 infection. SECONDARY DIAGNOSES: 1. Sinus tachycardia. 2. GBS bacteria. 3. Intrauterine . 4. History of adhesions. 5. History of x4. 6. History of bacterial vaginosis, status post treatment. DISCHARGE MEDICATIONS: 1. vitamin 93, one tablet p.o. daily. 2. Acetaminophen 650 mg p.o. q.6 hours p.r.n. 3. Amoxicillin 875 mg p.o. b.i.d. for 6 days. 4. Doxylamine/pyridoxine 1 tablet p.o. daily. 5. Guaifenesin 600 mg p.o. q.12 hours p.r.n. 6. Prednisone 20 mg p.o. daily for 5 days. 7. Promethazine 12.5 mg p.o. q.4 hours p.r.n. DISCONTINUED MEDICATIONS: None. HISTORY OF PRESENT ILLNESS/HOSPITAL COURSE: The patient is a 29-year-old G6, P4-0-1-4 at 14 weeks, estimated gestational age by last menstrual period consistent with 9.2-week ultrasound, who presented to the emergency department with complaints of chest pain and shortness of breath. The patient described the pain as sternal, rated as 3/10, stated it was nonradiating and worse with inspiration. The patient reported shortness of breath that was worsened with activity and speaking. She noted tachycardia, but denied headaches, vision changes, wheezes, or nausea. The patient initially experienced suprapubic abdominal pain, but stated that it resolved by the time of evaluation by the resident team. The patient notes that the chest pain and abdominal pain improved after a GI cocktail and has experienced GERD symptoms throughout her consisting of a bad aftertaste, increased reflux at night and reflux after large meals. However, the patient denies similar symptoms in the past. Notes that her blood pressure has been elevated in clinic and she is currently being evaluated for chronic hypertension. The patient denies a known history of tachycardia up until this point. In the emergency department, the patient's heart rate ranged from the 120s to 130s. She was fluid resuscitated with 2 L of normal saline and her heart rate improved to the 110s. However, the heart rate would subsequently increase to the 140s with ambulation and although blood pressure was initially elevated at 140s/70s, this improved to 100s/60s after fluid resuscitation as per above. EKG was completed in the Emergency Department and showed sinus tachycardia without evidence of ST segment changes. CT of chest and thorax were completed, the results of which are listed elsewhere in this document. A venogram of the lower extremities was completed, the results of which are mentioned elsewhere in this document. The patient was subsequently stabilized and transferred to the telemetry floor for continuous cardiac monitoring. She did have 1 or 2 episodes of chest pain throughout her hospitalization. However, this resolved spontaneously and was not associated with ST changes on repeat EKGs. Of note, the patient's troponins were negative x3. She was able to maintain p.o. intake well and voided and stooled normally. Per report, heart tones were measured in the 140s on admission and the patient continued to endorse good movement throughout her hospitalization. Denied any loss of fluid, vaginal bleeding, or feelings of contractions. Prior to discharge, vital signs were recorded as temperature 99.5, pulse 109, blood pressure 115/62, respirations 19 per minute, oxygen saturation 96% on room air. DISPOSITION: Stable. DISCHARGE INSTRUCTIONS: 1. Location: Home. 2. Diet: Regular. 3. Activity: Ad wilver. 4. Followup: The patient was encouraged to follow up with [facility] in 1 to 2 weeks to discuss her most recent hospitalization and evaluate her recovery following COVID-19 infection. The patient was counseled prior to discharge on proper COVID-19 self isolation and precaution guidelines as per the CDC. Job ID: [id number]
== END 2020-10-03 12:00 | disposition home or self-care (01) ==
LOC: ERS 21:46 → 2NO 10-01 07:35 → 2SW 10-01 13:46
PROVIDERS: ADMIT Family Medicine; ATTEND Family Medicine
DX: O98.512 Other viral diseases complicating pregnancy, second trimester (principal); U07.1 COVID-19; O99.891 Other specified diseases and conditions complicating pregnancy; M94.0 Chondrocostal junction syndrome [Tietze]; R00.0 Tachycardia, unspecified; R82.71 Bacteriuria; O98.812 Other maternal infectious and parasitic diseases complicating pregnancy, second trimester; B95.1 Streptococcus, group B, as the cause of diseases classified elsewhere; O99.212 Obesity complicating pregnancy, second trimester; E66.9 Obesity, unspecified; Z3A.14 14 weeks gestation of pregnancy; Z79.899 Other long term (current) drug therapy
CPT/HCPCS: 36415; 71275; 80053; 81003; 81015; 82728; 83615; 83690; 83880; 84439; 84443; 84481; 84484; 84702; 85025; 86140; 87086; 93005; 93010; 93970; 94760; 96372; 96374; G0378; J1650; J2405; Q9967; U0002

== ENCOUNTER 2020-11-04 03:17 | Emergency (ER) | payer OTHER ==
[2020-11-04 04:47] LABS: Bilirubin Negative (Negative); Blood, Urine Negative (Negative); Clarity Clear (Clear); Glucose, Urine (Dipstick) Normal (Negative); Ketone, Urine Negative (Negative); Leukocyte Negative Leu/uL (Negative); Nitrite Negative (Negative); Protein, Urine (Dipstick) 10 mg/dL (Neg-Trace); Specific Gravity, Urine 1.025 (1.002-1.036); Urobilinogen Normal mg/dL (Less than 2); pH, Urine 6.5 (5.0-9.0)
== END 2020-11-04 05:56 | disposition home or self-care (01) ==
LOC: ERS 03:17
DX: O9A.212 Injury, poisoning and certain other consequences of external causes complicating pregnancy, second trimester (principal); S30.1XXA Contusion of abdominal wall, initial encounter; Z3A.19 19 weeks gestation of pregnancy; W18.2XXA Fall in (into) shower or empty bathtub, initial encounter
CPT/HCPCS: 76815; 81003

== ENCOUNTER 2020-11-06 23:38 | Emergency (ER) | payer OTHER ==
[2020-11-07 00:23] LABS: Bacteria/HPF None Seen HPF (None Seen); Bilirubin Negative (Negative); Blood, Urine Negative (Negative); Clarity Clear (Clear); Glucose, Urine (Dipstick) Normal (Negative); Ketone, Urine Negative (Negative); Leukocyte Negative Leu/uL (Negative); Nitrite Negative (Negative); Protein, Urine (Dipstick) 30 mg/dL (Neg-Trace); RBC/HPF None Seen HPF (0-3); Specific Gravity, Urine 1.035 (1.002-1.036); Urobilinogen 3 mg/dL (Less than 2); WBC/HPF 0-3 HPF (0-3); pH, Urine 6.5 (5.0-9.0)
[2020-11-07 00:55] LABS: Amnisure Internal Control QC ACCEPTABLE (ACCEPTABLE)
[2020-11-07 01:01] LABS: Amnisure Test No Membranes Rupture (No Rupture)
[2020-11-09 19:20] LABS: Chlamydia by PCR Not Detected (NotDetected); GC by PCR Not Detected (NotDetected)
== END 2020-11-07 01:15 | disposition home or self-care (01) ==
LOC: ERS 23:38
DX: O99.891 Other specified diseases and conditions complicating pregnancy (principal); N89.8 Other specified noninflammatory disorders of vagina; Z3A.19 19 weeks gestation of pregnancy
CPT/HCPCS: 81003; 81015; 84112; 87480; 87491; 87510; 87591; 87660

== ENCOUNTER 2022-06-05 17:30 | Emergency (ER) | payer OTHER ==
[2022-06-05] MEDS ORDERED: Lidocaine 4% Cream 5 GM TUBE w/ Tegaderm ONE (20:32)
[2022-06-05] MEDS ORDERED: Lidocaine 1% PF 5 ML VIAL ONE (21:02)
[2022-06-05] MEDS ORDERED: Bacitracin 1 PK ONE (21:36)
== END 2022-06-05 21:45 | disposition home or self-care (01) ==
LOC: ERS 17:30
DX: L03.012 Cellulitis of left finger (principal)
CPT/HCPCS: 10060

== ENCOUNTER 2023-02-13 15:53 | Emergency (ER) | payer OTHER ==
[2023-02-13 18:40] LABS: #Eosinphils 0.1 thou/uL (0.0-0.7); #Monocytes 0.7 thou/uL (0.11-0.59); #Neutrophils 9.8 thou/uL (1.40-6.50); %Basophils 0.3 % (0.0-1.0); %Eosinophils 0.5 % (0.0-10.0); %Neutrophils 87.8 % (42.0-75.0); Hemoglobin 12.8 g/dL (12.0-16.0); Mean Corpuscular HGB CONC 32.7 g/dL (32.0-36.0); Mean Corpuscular Hemoglobin 28.5 pg (27.0-31.0); Mean Corpuscular Volume 87.3 fl (78.0-98.0); Mean Platelet Volume 9.3 fL (7.4-10.4); Platelet Count 282 10x3/uL (130-400); RBC Distribution Width 12.4 % (11.5-14.5); Red Blood Cell (RBC) Count 4.49 mill/uL (4.20-5.40); White Blood Cell (WBC) Count 11.1 10x3/uL (4.8-10.8)
[2023-02-13 18:48] LABS: BHCG - Serum Negative (NEGATIVE); Pregs Control Background? CLEAR/WHITE (CLR/WHITE); Pregs Control Bar Appear? YES (CONTROL BAR)
[2023-02-13 19:03] LABS: ALT (SGPT) 15 U/L (8-55); AST (SGOT) 16 U/L (5-34); Albumin 4.2 g/dL (3.5-5.0); Alkaline Phosphatase 70 U/L (40-110); Anion Gap 12 mmol/L (10-20); BUN (Urea Nitrogen) 7 mg/dL (7.0-18.7); Bilirubin, Total 0.5 mg/dL (0.2-1.2); Calc. Creatinine Clearance 0 mL/min (70-130); Calcium 9.4 mg/dL (7.8-10.44); Carbon Dioxide 27 mmol/L (22-29); Chloride 102 mmol/L (98-107); Estimated GFR 99; Globulin 3.3 g/dL (2.4-3.5); Glucose 89 mg/dL (70-105); Potassium 3.8 mmol/L (3.5-5.1); Protein, Total 7.5 g/dL (6.0-8.3); Sodium 137 mmol/L (136-145)
[2023-02-13] MEDS ORDERED: diphenhydrAMINE 25 MG CAP ONE (19:23)
[2023-02-13] MEDS ORDERED: Metoclopramide 10 MG/10 ML UDCUP ONE (19:23)
[2023-02-13] MEDS ORDERED: Ketorolac Tromethamine 30 MG/ML VIAL ONE (19:23)
[2023-02-13] MEDS ORDERED: methylPREDNISolone Sod Succ/PF 125 MG/2 ML VIAL ONE (19:24)
[2023-02-13] MEDS ORDERED: diphenhydrAMINE 50 MG/ML VIAL ONE (19:44)
[2023-02-13] MEDS ORDERED: Metoclopramide HCl 10 MG/2 ML VIAL ONE (19:44)
[2023-02-13 20:35] LABS: Bilirubin Negative (Negative); Blood, Urine Negative (Negative); Clarity Clear (Clear); Glucose, Urine (Dipstick) Normal (Negative); Ketone, Urine Negative (Negative); Leukocyte Negative Leu/uL (Negative); Nitrite Negative (Negative); Protein, Urine (Dipstick) Negative (Neg-Trace); Specific Gravity, Urine 1.004 (1.002-1.036); Urobilinogen Normal mg/dL (Less than 2)
[2023-02-13] MEDS ORDERED: Promethazine HCl 12.5 MG in Sodium Chloride 0.9% 50 ML IVPB SCH (21:00)
[2023-02-13 21:20] LABS: SARS-CoV-2 NAA Rapid Test Not Detected (NotDetected)
== END 2023-02-13 21:48 | disposition home or self-care (01) ==
LOC: ERS 15:53
DX: R51.9 Headache, unspecified (principal); D72.829 Elevated white blood cell count, unspecified; Z87.891 Personal history of nicotine dependence; Z20.822 Contact with and (suspected) exposure to COVID-19
CPT/HCPCS: 36415; 70450; 80053; 81003; 84703; 85025; 96365; 96366; 96375; J1200; J1885; J2550; J2765; J2930

== ENCOUNTER 2023-05-18 02:47 | Emergency (ER) | payer OTHER ==
[2023-05-18] MEDS ORDERED: Ketorolac Tromethamine 30 MG/ML VIAL ONE (04:00)
== END 2023-05-18 05:11 | disposition home or self-care (01) ==
LOC: ERS 02:47
DX: N63.20 Unspecified lump in the left breast, unspecified quadrant (principal); R07.89 Other chest pain; Z87.891 Personal history of nicotine dependence
CPT/HCPCS: 71045; 96372; J1885

== ENCOUNTER 2023-07-11 14:24 | Outpatient (CLI) | payer OTHER | END 2023-07-11 14:25 | disposition home or self-care (01) | LOC: BICCT 14:24 | PROVIDERS: ATTEND Student in an Organized Health Care Education/Training Program | DX: R10.9 Unspecified abdominal pain (principal) | CPT/HCPCS: 74176 ==